=== PATIENT | female | born 1950 | race Caucasian/White ===

== ENCOUNTER → 2025-06-09 14:53 | Outpatient (REF) | payer MEDICARE, OTHER, SELFPAY | LOC: RCS 14:53 | PROVIDERS: ATTENDING PHYSICIAN Internal Medicine Cardiovascular Disease; FAMILY PHYSICIAN Internal Medicine | DX: Z98.890 Other specified postprocedural states (principal); I51.81 Takotsubo syndrome; R53.83 Other fatigue | CPT/HCPCS: 93306 ==